=== PATIENT | male | born 1975 | race Two or more races ===

== ENCOUNTER 2021-08-07 13:45 | Inpatient (IN) | payer SELFPAY ==
[~2021-08-07] VITALS: Ht 162.6 cm; Wt 76.5 kg
[2021-08-07] MEDS ORDERED: levETIRAcetam 1,000 MG in IV DEXTROSE 5% 100ML 100 ML IV ONE (14:00)
--- NOTE | 2021-08-07 14:26 | RAD ---
Exam Date: 08/07/2021 2:[address] HEAD/BRAIN WO Indication: Reason: ams/post ictal / Spl. Instructions: / History: . TECHNIQUE: Head CT was performed without intravenous contrast. One or more of the following dose re duction techniques were utilized: *Automated exposure control (AEC) *Adjustment of mA and/or kV according to patient size *Use of iterative reconstruction technique *CT scan done according to ALARA, or ALARA/IMAGE GENTLY FINDINGS: Postoperative changes of right craniotomy are seen with encephalomalacia in the right temporoparietal lobe. The ventricles and sulci are normal for the patient's stated age. There is no evidence of acute int racranial hemorrhage, extra-axial collection, mass effect, midline shift, or acute territorial infarc t. The visualized paranasal sinuses, mastoid air cells and orbits are normal in appearance. IMPRESSION: No evidence for acute intracranial abnormality. Postoperative changes on the right with encephalomalacia noted. Electronically signed by: Sergey Kent MD (08/07/2021 2:24 PM) [id number]
[2021-08-07] MEDS ORDERED: IV NORMAL SALINE 1000ML BAG 1,000 ML IV ONE ×2 (14:45)
[2021-08-07 15:04] LABS: BASO % 1 % (0-3); EOS % 0 % (0-3); HEMOGLOBIN 13.8 g/dL (13.0-17.5); LYMPH # 0.6 x10^3/uL (1.0-4.8); LYMPH % 8 % (24-48); MEAN CORPUSCULAR HEMOGLOBIN 29 pg (25-35); MEAN CORPUSCULAR HGB CONC 33 g/dL (31-37); MEAN CORPUSCULAR VOLUME 87 fL (79-100); MONO # 0.4 x10^3/uL (0.0-1.1); MONO % 5 % (0-9); NEUT # 6.4 x10^3/uL (1.8-7.7); NEUT % 86 % (31-73); PLATELET COUNT 208 x10^3/uL (140-400); RED BLOOD COUNT 4.83 x10^6/uL (4.30-5.70); WHITE BLOOD COUNT 7.4 x10^3/uL (4.0-11.0)
[2021-08-07 15:07] LABS: CALCIUM 8.3 mg/dL (8.5-10.1); CREATININE 1.3 mg/dL (0.7-1.3); GFR 59.7; POTASSIUM 4.2 mmol/L (3.5-5.1)
[2021-08-07 15:13] LABS: ALBUMIN 3.4 g/dL (3.4-5.0); ALBUMIN/GLOBULIN RATIO 1.1 (1.0-1.7); TOTAL BILIRUBIN 0.3 mg/dL (0.2-1.0); TOTAL PROTEIN 6.5 g/dL (6.4-8.2)
[2021-08-07 17:14] LABS: AMPHETAMINE/METHAMPHETAMINE NEG (NEG); BARBITURATES NEG (NEG); BENZODIAZEPINES POS (NEG); CANNABINOIDS NEG (NEG); COCAINE NEG (NEG); METHADONE NEG (NEG); OPIATES NEG (NEG); PHENCYCLIDINE NEG (NEG)
--- NOTE | 2021-08-07 17:45 | PHYS DOC ---
Past Medical History Additional Past Medical Histor: unknown Past Surgical History: No Surgical History Additional Past Surgical Histo: unknown General Adult EDM: Chief Complaint: SEIZURE HPI: HPI: 45-year-old male presents the ED brought by EMS with concern for seizure-like activity per EMS. Patient was found seated in a car in a parking lot with seizure-like activity. Was given 2.5 mg Versed with no resolution of symptoms. Was given a repeat 2.5 mg of Versed, total 5 mg and patients' seizure liek activity resolved. Family was present on the scene and reported patient has a history of seizures. Patient is [place]z-speaking. History and and review of systems unable due to sedation. Review of Systems: Review of Systems: ROS unobtainable Heart Score: C/O Chest Pain: N/A Risk Factors: Risk Factors: DM, Current or recent (<one month) smoker, HTN, HLP, family history of CAD, obesity. Risk Scores: Score 0 - 3: 2.5% MACE over next 6 weeks - Discharge Home Score 4 - 6: 20.3% MACE over next 6 weeks - Admit for Clinical Observation Score 7 - 10: 72.7% MACE over next 6 weeks - Early Invasive Strategies Current Medications: Current Medications Medications (Trade) Dose Ordered Sig/Manjit Start Time Stop Time Status Last Admin Dose Admin Levetiracetam 1000 mg/Dextrose 110 ml @ 440 mls/hr 1X ONCE 08/07/21 14:00 08/07/21 14:14 DC 08/07/21 14:04 440 MLS/HR Sodium Chloride 1,000 ml @ 1,000 mls/hr 1X ONCE 08/07/21 14:45 08/07/21 15:44 DC Allergies: Allergies: Allergies Coded Allergies Type Severity Reaction Last Updated Verified No Known Drug Allergies 08/07/21 No Physical Exam: PE: Constitutional: Resting comfortably with no snoring respirations HENT: Normocephalic, atraumatic, no oral bleeding Eyes: PERRLA, EOMI, conjunctiva normal, no discharge. Neck: Normal range of motion, supple, no midline spinal step-offs Cardiovascular: S1/2 present, regular rhythm Lungs & Thorax: bilateral equal chest rise, no tachypnea or increased work of breathing Abdomen: soft, no tenderness, Skin: Warm, dry, no erythema, no rash. [] Extremities: No tenderness, no cyanosis, no lower extremity edema Neurologic: GCS9 ([id number]),, no focal deficits noted. [] Psychologic: Calm, no agitation Current Patient Data: Labs: Laboratory Tests Test 08/07/21 14:51 08/07/21 16:50 White Blood Count 7.4 x10^3/uL (4.0-11.0) Red Blood Count 4.83 x10^6/uL (4.30-5.70) Hemoglobin 13.8 g/dL (13.0-17.5) Hematocrit 42.0 % (39.0-53.0) Mean Corpuscular Volume 87 fL (79-100) Mean Corpuscular Hemoglobin 29 pg (25-35) Mean Corpuscular Hemoglobin Concent 33 g/dL (31-37) Red Cell Distribution Width 15.0 % (11.5-14.5) H Platelet Count 208 x10^3/uL (140-400) Neutrophils (%) (Auto) 86 % (31-73) H Lymphocytes (%) (Auto) 8 % (24-48) L Monocytes (%) (Auto) 5 % (0-9) Eosinophils (%) (Auto) 0 % (0-3) Basophils (%) (Auto) 1 % (0-3) Neutrophils # (Auto) 6.4 x10^3/uL (1.8-7.7) Lymphocytes # (Auto) 0.6 x10^3/uL (1.0-4.8) L Monocytes # (Auto) 0.4 x10^3/uL (0.0-1.1) Eosinophils # (Auto) 0.0 x10^3/uL (0.0-0.7) Basophils # (Auto) 0.0 x10^3/uL (0.0-0.2) Sodium Level 140 mmol/L (136-145) Potassium Level 4.2 mmol/L (3.5-5.1) Chloride Level 106 mmol/L (98-107) Carbon Dioxide Level 27 mmol/L (21-32) Anion Gap 7 (6-14) Blood Urea Nitrogen 20 mg/dL (8-26) Creatinine 1.3 mg/dL (0.7-1.3) Estimated GFR (Cockcroft-Gault) 59.7 BUN/Creatinine Ratio 15 (6-20) Glucose Level 130 mg/dL (70-99) H Calcium Level 8.3 mg/dL (8.5-10.1) L Total Bilirubin 0.3 mg/dL (0.2-1.0) Aspartate Amino Transferase (AST) 17 U/L (15-37) Alanine Aminotransferase (ALT) 26 U/L (16-63) Alkaline Phosphatase 64 U/L (46-116) Creatine Kinase 124 U/L (39-308) Total Protein 6.5 g/dL (6.4-8.2) Albumin 3.4 g/dL (3.4-5.0) Albumin/Globulin Ratio 1.1 (1.0-1.7) Ethyl Alcohol Level < 10 mg/dL (0-10) Urine Opiates Screen Neg (NEG) Urine Methadone Screen Neg (NEG) Urine Barbiturates Neg (NEG) Urine Phencyclidine Screen Neg (NEG) Urine Amphetamine/Methamphetamine Neg (NEG) Urine Benzodiazepines Screen Pos (NEG) Urine Cocaine Screen Neg (NEG) Urine Cannabinoids Screen Neg (NEG) Urine Ethyl Alcohol Neg (NEG) Laboratory Tests 08/07/21 14:51 Laboratory Tests 08/07/21 14:51 Vital Signs: Vital Signs Date Time Temp Pulse Resp B/P (MAP) Pulse Ox O2 Delivery O2 Flow Rate FiO2 08/07/21 17:01 66 12 117/72 (87) 98 Room Air 08/07/21 13:45 98.4 98.4 EKG: EKG: [] Radiology/Procedures: Radiology/Procedures: IMAGING REPORT Signed PATIENT: KETAN WHITMORE ACCOUNT: [id number] : 1975 LOCATION: ER AGE: 45 SEX: M EXAM STATUS: PRE ER ORD. PHYSICIAN: BELLE RILEY DO REASON: ams/post ictal PROCEDURE: CT HEAD WO CONTRAST Exam Date: 08/07/2021 2:[address] HEAD/BRAIN WO Indication: Reason: ams/post ictal / Spl. Instructions: / History: . TECHNIQUE: Head CT was performed without intravenous contrast. One or more of the following dose reduction techniques were utilized: *Automated exposure control (AEC) *Adjustment of mA and/or kV according to patient size *Use of iterative reconstruction technique *CT scan done according to ALARA, or ALARA/IMAGE GENTLY FINDINGS: Postoperative changes of right craniotomy are seen with encephalomalacia in the right temporoparietal lobe. The ventricles and sulci are normal for the patient's stated age. There is no evidence of acute intracranial hemorrhage, extra-axial collection, mass effect, midline shift, or acute territorial infarct. The visualized paranasal sinuses, mastoid air cells and orbits are normal in appearance. IMPRESSION: No evidence for acute intracranial abnormality. Postoperative changes on the right with encephalomalacia noted. Electronically signed by: Mattie Kent MD (08/07/2021 2:24 PM) [id number] DICTATED and SIGNED BY: MATTIE KENT MD DATE: 08/07/21 [id number] 0 Course & Med Decision Making: Course & Med Decision Making Pertinent Labs and Imaging studies reviewed. (See chart for details) Concern for seizure-like activity. On reevaluation using accident examiner in [place]z speaking staff, patient is not alert and oriented. Patient reports no history of epilepsy despite family history given to EMS. CT concerning for prior head trauma with craniectomy. No family to obtain collateral information. Will admit to medicine for further medical management. Dragon Disclaimer: Dragon Disclaimer: This electronic medical record was generated, in whole or in part, using a voice recognition dictation system. Departure Departure Impression: Primary Impression: Altered mental status Additional Impression: Seizure-like activity Disposition: ADMITTED INPATIENT Admitting Physician: SYDNIE (Dr. Sánchez) Condition: STABLE NELLAKEONAnh Mercer DO Aug 07, 2021 17:45
[2021-08-07 17:59] LABS: BILIRUBIN,URINE NEGATIVE (NEG); CLARITY,URINE CLEAR; COLOR,URINE YELLOW; NITRITE,URINE NEGATIVE (NEG); PROTEIN,URINE NEGATIVE (NEG-TRACE); UROBILINOGEN,URINE 0.2 mg/dL (0.2 mg/dL)
[2021-08-07 18:09] LABS: BACTERIA,URINE 0 /HPF (0-FEW); RBC,URINE RARE /HPF (0-2); WBC,URINE RARE /HPF (0-4)
--- NOTE | 2021-08-07 20:21 | RAD ---
Single view chest dated 08/07/2021 8:17 PM: COMPARISON: 04/11/2021 Clinical Indication: Altered mental status. Findings: Single upright portable exam of the chest was performed. Heart and mediastinal contours within normal limits. Minimal patchy perihilar opacity in the left is similar to prior study. No consolidation or pleural effusion. No pneumothorax. IMPRESSION: 1. No acute radiographic abnormality. Stable findings compared to 04/11/2021. Electronically signed by: Elia Hilliard MD (08/07/2021 8:19 PM) ANAHI
[2021-08-08] MEDS ORDERED: DEXTROSE 50% 25 GM / 50ML DISP.SYRIN. IV PRN (08:15)
[2021-08-08] MEDS ORDERED: DOCUSATE SODIUM 100 MG CAPSULE. PO PRN (08:15)
[2021-08-08] MEDS ORDERED: PROCHLORPERAZINE 10 MG/2 ML VIAL. IV PRN (08:15)
[2021-08-08] MEDS ORDERED: ACETAMINOPHEN 325 MG TABLET. PO PRN (08:15)
[2021-08-08] MEDS ORDERED: SENNOSIDES 8.6 MG TABLET PO PRN (08:15)
[2021-08-08] MEDS ORDERED: ONDANSETRON PF 4 MG/2 ML VIAL. IVP PRN (08:15)
[2021-08-08] MEDS ORDERED: ZOLPIDEM 5 MG TABLET. PO PRN (08:15)
[2021-08-08] MEDS ORDERED: LORazepam 0.5 MG TABLET PO PRN (08:15)
--- NOTE | 2021-08-08 08:18 | PDOC1 ---
History and Physical Date of Service: DOS: DATE: 08/08/21 TIME: 08:14 Chief Complaint: Chief Complain: Seizures History of Present Illness: HPI: History obtained from discussion with the ED physician and chart review: 45-year-old male presents the ED brought by EMS with concern for seizure-like activity per EMS. Patient was found seated in a car in a parking lot with seizure-like activity. Was given 2.5 mg Versed with no resolution of symptoms. Was given a repeat 2.5 mg of Versed, total 5 mg and patients' seizure activity resolved. Family was present on the scene and reported patient has a history of seizures. Patient is Maori-speaking. History and and review of systems unable due to sedation. Past Medical/Surgical History: PMH/PSH: Unknown Allergies: Allergies: Coded Allergies: No Known Drug Allergies (Unverified , 08/07/21) Family History: Family History: Reviewed with no relevant findings Social History: Social History: Unable to obtain due to sedation Current Medications: Current Medications Current Medications Levetiracetam 1000 mg/Dextrose 110 ml @ 440 mls/hr 1X ONCE IV Last administered on 08/07/21at 14:04; Start 08/07/21 at 14:00; Stop 08/07/21 at 14:14; Status DC Sodium Chloride 1,000 ml @ 1,000 mls/hr 1X ONCE IV Last administered on 08/07/21at 14:37; Start 08/07/21 at 14:45; Stop 08/07/21 at 15:44; Status DC Sodium Chloride 1,000 ml @ 1,000 mls/hr 1X ONCE IV Last administered on 08/07/21at 15:00; Start 08/07/21 at 14:45; Stop 08/07/21 at 15:44; Status DC ROS: Review of Systems Review of System REVIEW OF SYSTEMS: GENERAL: Denies weakness SKIN: No bruising, hair changes or rashes. EYES: No blurred, double or loss of vision. NOSE AND THROAT: No history of nosebleeds, hoarseness or sore throat. HEART: No history of palpitations, chest pain or shortness of breath on exertion. LUNGS: Denies cough, hemoptysis, wheezing or shortness of breath. GASTROINTESTINAL: Denies changes in appetite, nausea, vomiting, diarrhea or constipation. GENITOURINARY: No history of frequency, urgency, hesitancy or nocturia. NEUROLOGIC: Denies history of numbness, tingling, or tremor. PSYCHIATRIC: No history of panic, anxiety or depression. ENDOCRINE: No history of heat or cold intolerance, polyuria or polydipsia. EXTREMITIES: Denies joint pain, pain on walking or stiffness. Physical Exam: Vital Signs: Vital Signs Date Time Temp Pulse Resp B/P (MAP) Pulse Ox O2 Delivery O2 Flow Rate FiO2 08/08/21 04:30 98.4 74 16 97/54 (68) 99 Room Air 98.4 Physcial Exam: GEN: No apparent distress. Alert and oriented HEENT: Normal cephalic, atraumatic, external auditory canals are patent EYES: Extraocular muscles are intact, pupil are equally round and reactive to light and accommodation MUSCULOSKELETAL: Well developed , well nourished, good range of motion ENDOCRINE: No thyromegaly was palpated LYMPHATICS: No cervical chain or axillary nodes were noted HEMATOPOIETIC: No bruising NECK: Supple, no JVD, no thyromegaly was noted LUNGS: Clear to auscultation in all lung castañeda without rhonchi or wheezing HEART: RRR, S!, S2 present. Peripheral pulses intact, no obvious murmurs noted ABDOMEN: Soft, nontender. Positive bowel sounds, no organomegaly, normal bowel sounds EXTREMITIES: Without clubbing, cyanosis, or edema. Pedal pulses intact. Negative Homans sign NEUROLOGIC: Normal speech and tone. A&O x 3, moves all extremities, no obvious focal deficits PSYCHIATRIC: Normal affect, normal mood. Stable SKIN: No ulcerations or rashes, good skin turgor, no jaundice VASCULAR: Good capillary refill, neurovascular bundle appears to be intact Labs: Labs: Laboratory Tests Test 08/07/21 14:51 08/07/21 16:50 White Blood Count 7.4 x10^3/uL (4.0-11.0) Red Blood Count 4.83 x10^6/uL (4.30-5.70) Hemoglobin 13.8 g/dL (13.0-17.5) Hematocrit 42.0 % (39.0-53.0) Mean Corpuscular Volume 87 fL (79-100) Mean Corpuscular Hemoglobin 29 pg (25-35) Mean Corpuscular Hemoglobin Concent 33 g/dL (31-37) Red Cell Distribution Width 15.0 % (11.5-14.5) Platelet Count 208 x10^3/uL (140-400) Neutrophils (%) (Auto) 86 % (31-73) Lymphocytes (%) (Auto) 8 % (24-48) Monocytes (%) (Auto) 5 % (0-9) Eosinophils (%) (Auto) 0 % (0-3) Basophils (%) (Auto) 1 % (0-3) Neutrophils # (Auto) 6.4 x10^3/uL (1.8-7.7) Lymphocytes # (Auto) 0.6 x10^3/uL (1.0-4.8) Monocytes # (Auto) 0.4 x10^3/uL (0.0-1.1) Eosinophils # (Auto) 0.0 x10^3/uL (0.0-0.7) Basophils # (Auto) 0.0 x10^3/uL (0.0-0.2) Sodium Level 140 mmol/L (136-145) Potassium Level 4.2 mmol/L (3.5-5.1) Chloride Level 106 mmol/L (98-107) Carbon Dioxide Level 27 mmol/L (21-32) Anion Gap 7 (6-14) Blood Urea Nitrogen 20 mg/dL (8-26) Creatinine 1.3 mg/dL (0.7-1.3) Estimated GFR (Cockcroft-Gault) 59.7 BUN/Creatinine Ratio 15 (6-20) Glucose Level 130 mg/dL (70-99) Calcium Level 8.3 mg/dL (8.5-10.1) Total Bilirubin 0.3 mg/dL (0.2-1.0) Aspartate Amino Transf (AST/SGOT) 17 U/L (15-37) Alanine Aminotransferase (ALT/SGPT) 26 U/L (16-63) Alkaline Phosphatase 64 U/L (46-116) Creatine Kinase 124 U/L (39-308) Total Protein 6.5 g/dL (6.4-8.2) Albumin 3.4 g/dL (3.4-5.0) Albumin/Globulin Ratio 1.1 (1.0-1.7) Ethyl Alcohol Level < 10 mg/dL (0-10) Urine Collection Type Unknown Urine Color Yellow Urine Clarity Clear Urine pH 6.0 (<5.0-8.0) Urine Specific [place] 1.010 (1.000-1.030) Urine Protein Negative mg/dL (NEG-TRACE) Urine Glucose (UA) Negative mg/dL (NEG) Urine Ketones (Stick) Negative mg/dL (NEG) Urine Blood Negative (NEG) Urine Nitrite Negative (NEG) Urine Bilirubin Negative (NEG) Urine Urobilinogen Dipstick 0.2 mg/dL (0.2 mg/dL) Urine Leukocyte Esterase Negative (NEG) Urine RBC Rare /HPF (0-2) Urine WBC Rare /HPF (0-4) Urine Squamous Epithelial Cells Occ /LPF Urine Bacteria 0 /HPF (0-FEW) Urine Mucus Slight /LPF Urine Opiates Screen Neg (NEG) Urine Methadone Screen Neg (NEG) Urine Barbiturates Neg (NEG) Urine Phencyclidine Screen Neg (NEG) Urine Amphetamine/Methamphetamine Neg (NEG) Urine Benzodiazepines Screen Pos (NEG) Urine Cocaine Screen Neg (NEG) Urine Cannabinoids Screen Neg (NEG) Urine Ethyl Alcohol Neg (NEG) Laboratory Tests Test 08/07/21 14:51 08/07/21 16:50 White Blood Count 7.4 x10^3/uL (4.0-11.0) Red Blood Count 4.83 x10^6/uL (4.30-5.70) Hemoglobin 13.8 g/dL (13.0-17.5) Hematocrit 42.0 % (39.0-53.0) Mean Corpuscular Volume 87 fL (79-100) Mean Corpuscular Hemoglobin 29 pg (25-35) Mean Corpuscular Hemoglobin Concent 33 g/dL (31-37) Red Cell Distribution Width 15.0 % (11.5-14.5) Platelet Count 208 x10^3/uL (140-400) Neutrophils (%) (Auto) 86 % (31-73) Lymphocytes (%) (Auto) 8 % (24-48) Monocytes (%) (Auto) 5 % (0-9) Eosinophils (%) (Auto) 0 % (0-3) Basophils (%) (Auto) 1 % (0-3) Neutrophils # (Auto) 6.4 x10^3/uL (1.8-7.7) Lymphocytes # (Auto) 0.6 x10^3/uL (1.0-4.8) Monocytes # (Auto) 0.4 x10^3/uL (0.0-1.1) Eosinophils # (Auto) 0.0 x10^3/uL (0.0-0.7) Basophils # (Auto) 0.0 x10^3/uL (0.0-0.2) Sodium Level 140 mmol/L (136-145) Potassium Level 4.2 mmol/L (3.5-5.1) Chloride Level 106 mmol/L (98-107) Carbon Dioxide Level 27 mmol/L (21-32) Anion Gap 7 (6-14) Blood Urea Nitrogen 20 mg/dL (8-26) Creatinine 1.3 mg/dL (0.7-1.3) Estimated GFR (Cockcroft-Gault) 59.7 BUN/Creatinine Ratio 15 (6-20) Glucose Level 130 mg/dL (70-99) Calcium Level 8.3 mg/dL (8.5-10.1) Total Bilirubin 0.3 mg/dL (0.2-1.0) Aspartate Amino Transf (AST/SGOT) 17 U/L (15-37) Alanine Aminotransferase (ALT/SGPT) 26 U/L (16-63) Alkaline Phosphatase 64 U/L (46-116) Creatine Kinase 124 U/L (39-308) Total Protein 6.5 g/dL (6.4-8.2) Albumin 3.4 g/dL (3.4-5.0) Albumin/Globulin Ratio 1.1 (1.0-1.7) Ethyl Alcohol Level < 10 mg/dL (0-10) Urine Collection Type Unknown Urine Color Yellow Urine Clarity Clear Urine pH 6.0 (<5.0-8.0) Urine Specific [place] 1.010 (1.000-1.030) Urine Protein Negative mg/dL (NEG-TRACE) Urine Glucose (UA) Negative mg/dL (NEG) Urine Ketones (Stick) Negative mg/dL (NEG) Urine Blood Negative (NEG) Urine Nitrite Negative (NEG) Urine Bilirubin Negative (NEG) Urine Urobilinogen Dipstick 0.2 mg/dL (0.2 mg/dL) Urine Leukocyte Esterase Negative (NEG) Urine RBC Rare /HPF (0-2) Urine WBC Rare /HPF (0-4) Urine Squamous Epithelial Cells Occ /LPF Urine Bacteria 0 /HPF (0-FEW) Urine Mucus Slight /LPF Urine Opiates Screen Neg (NEG) Urine Methadone Screen Neg (NEG) Urine Barbiturates Neg (NEG) Urine Phencyclidine Screen Neg (NEG) Urine Amphetamine/Methamphetamine Neg (NEG) Urine Benzodiazepines Screen Pos (NEG) Urine Cocaine Screen Neg (NEG) Urine Cannabinoids Screen Neg (NEG) Urine Ethyl Alcohol Neg (NEG) Images: Images PROCEDURE: CHEST AP ONLY Single view chest dated 08/07/2021 8:17 PM: COMPARISON: 04/11/2021 Clinical Indication: Altered mental status. Findings: Single upright portable exam of the chest was performed. Heart and mediastinal contours within normal limits. Minimal patchy perihilar opacity in the left is similar to prior study. No consolidation or pleural effusion. No pneumothorax. IMPRESSION: 1. No acute radiographic abnormality. Stable findings compared to 04/11/2021. PROCEDURE: CT HEAD WO CONTRAST Exam Date: 08/07/2021 2:[address] HEAD/BRAIN WO Indication: Reason: ams/post ictal / Spl. Instructions: / History: . TECHNIQUE: Head CT was performed without intravenous contrast. One or more of the following dose reduction techniques were utilized: *Automated exposure control (AEC) *Adjustment of mA and/or kV according to patient size *Use of iterative reconstruction technique *CT scan done according to ALARA, or ALARA/IMAGE GENTLY FINDINGS: Postoperative changes of right craniotomy are seen with encephalomalacia in the right temporoparietal lobe. The ventricles and sulci are normal for the patient's stated age. There is no evidence of acute intracranial hemorrhage, extra-axial collection, mass effect, midline shift, or acute territorial infarct. The visualized paranasal sinuses, mastoid air cells and orbits are normal in appearance. IMPRESSION: No evidence for acute intracranial abnormality. Postoperative changes on the right with encephalomalacia noted. Assessment/Plan Assessment/Plan Acute metabolic encephalopathy due to seizure activity History of seizure disorder History of right craniotomy Justifications for Admission Other Justification LUIS GONZALEZ MD Aug 08, 2021 08:18
[2021-08-08] MEDS ORDERED: MIDAZOLAM HCL/PF 2 MG/2 ML VIAL. IV PRN (08:30)
[2021-08-08] MEDS ORDERED: levETIRAcetam 500 MG TABLET PO SCH (09:15)
--- NOTE | 2021-08-08 09:27 | PDOC2 ---
NEUROLOGY CONSULT Date of Service DOS: DATE: 08/08/21 TIME: 09:23 Reason for Consult Reason for Consult: Seizure Referring Physician Referring Physician: Dr. Terrell Source Source: Chart review, Patient History of Present Illness History of Present Illness The patient is a 45-year-old right-handed male who had a witnessed seizure yesterday. He had a prolonged postictal state in the emergency department. There is some confusion as to whether he has a previous history of seizure. I conversed with him in Slovenian and also looked at the notes from Dr. Tejeda, who writes that the family told her that he has a previous history of head injury and seizures. Indeed, that is what the patient tells me. He does not remember his last seizure. He does not know if he takes a medication for seizures. He is feeling back to himself right now and wants to go home. Past Medical History CENTRAL NERVOUS SYSTEM: Seizure, Other (Head injury) Past Surgical History Past Surgical History: Other (Right craniotomy), No pertinent history Family History Family History: No pertinent hx (He denies family history of seizures) Social History Social History , works in a store, no alcohol or tobacco Current Medications Current Medications Current Medications Levetiracetam 1000 mg/Dextrose 110 ml @ 440 mls/hr 1X ONCE IV Last administered on 08/07/21at 14:04; Start 08/07/21 at 14:00; Stop 08/07/21 at 14:14; Status DC Sodium Chloride 1,000 ml @ 1,000 mls/hr 1X ONCE IV Last administered on 08/07/21at 14:37; Start 08/07/21 at 14:45; Stop 08/07/21 at 15:44; Status DC Sodium Chloride 1,000 ml @ 1,000 mls/hr 1X ONCE IV Last administered on 08/07/21at 15:00; Start 08/07/21 at 14:45; Stop 08/07/21 at 15:44; Status DC Sennosides (Senna) 17.2 mg PRN BID PRN PO CONSTIPATION; Start 08/08/21 at 08:15 Docusate Sodium (Colace) 100 mg PRN DAILY PRN PO HARD STOOLS; Start 08/08/21 at 08:15 Ondansetron HCl (Zofran) 4 mg PRN Q6HRS PRN IVP NAUSEA/VOMITING; Start 08/08/21 at 08:15 Dextrose (Dextrose 50%-Water Syringe) 12.5 gm PRN Q15MIN PRN IV SEE COMMENTS; Start 08/08/21 at 08:15 Acetaminophen (Tylenol) 650 mg PRN Q4HRS PRN PO TEMP OVER 100.4F OR MILD PAIN; Start 08/08/21 at 08:15 Lorazepam (Ativan) 0.5 mg PRN Q6HRS PRN PO ANXIETY / AGITATION; Start 08/08/21 at 08:15 Lorazepam (Ativan Inj) 0.25 mg PRN Q4HRS PRN IV ANXIETY / AGITATION; Start 08/08/21 at 08:15 Prochlorperazine Edisylate (Compazine) 10 mg PRN Q6HRS PRN IV NAUSEA/VOMITING; Start 08/08/21 at 08:15 Zolpidem Tartrate (Ambien) 2.5 mg PRN QHS PRN PO INSOMNIA; Start 08/08/21 at 08:15 Midazolam HCl (Versed) 2 mg Q6H PRN IV SEIZURES; Start 08/08/21 at 08:30 Levetiracetam (Keppra) 500 mg BID PO ; Start 08/08/21 at 09:15 Allergies Allergies: Coded Allergies: No Known Drug Allergies (Unverified , 08/07/21) ROS Review of System Negative for fever, chills, weight loss, shortness of breath, chest pain, ralph gestion, hematochezia, melena, and dysuria. Full 14-point review of systems is negative. Physical Exam Physical Examination General: Well-developed, well-nourished, male, in no acute distress HEENT: Normocephalic andatraumatic. Tympanic membranes clear.Temporal arteriespulsatile and nontender.Fundoscopic exam unremarkable Neck: Supple without bruit, no meningismus Musculoskeletal: Stability:see neurologic. Gait exam:see neurologic. Tone:see neurologic.Stre ngth:see neurologic. Neurological: Mental Status:intact, orientation, memory, attention span/concentration, language, fund of knowledge normal, except he does not know the name of the hospital. Cranial Nerves:Pupils equal and reactive to light, extraocular movements areintact, visual castañeda are full to confrontation. Facial sensation is normal. There is no facial asymmetry. Vestibulo-ocular reflex is intact. Palate elevates and tongue protrudes in midline. All other cranial related problems are negative except as mentioned before.Reflexes:2+ and symmetric with flexor plantar responses. Motor:5/5 strength with normal tone and bulk. Coordination:Finger-nose finger and gaqu-nj-glka testing are normal. Rapid alternating movements and fine finger movements are intact. Gait:Not tested. Sensory:Normal pinprick, vibration, light touch, proprioception. Vitals VITALS Vital Signs Date Time Temp Pulse Resp B/P (MAP) Pulse Ox O2 Delivery O2 Flow Rate FiO2 08/08/21 04:30 98.4 74 16 97/54 (68) 99 Room Air 98.4 Labs Labs Laboratory Tests Test 08/07/21 14:51 08/07/21 16:50 White Blood Count 7.4 x10^3/uL (4.0-11.0) Red Blood Count 4.83 x10^6/uL (4.30-5.70) Hemoglobin 13.8 g/dL (13.0-17.5) Hematocrit 42.0 % (39.0-53.0) Mean Corpuscular Volume 87 fL (79-100) Mean Corpuscular Hemoglobin 29 pg (25-35) Mean Corpuscular Hemoglobin Concent 33 g/dL (31-37) Red Cell Distribution Width 15.0 % (11.5-14.5) Platelet Count 208 x10^3/uL (140-400) Neutrophils (%) (Auto) 86 % (31-73) Lymphocytes (%) (Auto) 8 % (24-48) Monocytes (%) (Auto) 5 % (0-9) Eosinophils (%) (Auto) 0 % (0-3) Basophils (%) (Auto) 1 % (0-3) Neutrophils # (Auto) 6.4 x10^3/uL (1.8-7.7) Lymphocytes # (Auto) 0.6 x10^3/uL (1.0-4.8) Monocytes # (Auto) 0.4 x10^3/uL (0.0-1.1) Eosinophils # (Auto) 0.0 x10^3/uL (0.0-0.7) Basophils # (Auto) 0.0 x10^3/uL (0.0-0.2) Sodium Level 140 mmol/L (136-145) Potassium Level 4.2 mmol/L (3.5-5.1) Chloride Level 106 mmol/L (98-107) Carbon Dioxide Level 27 mmol/L (21-32) Anion Gap 7 (6-14) Blood Urea Nitrogen 20 mg/dL (8-26) Creatinine 1.3 mg/dL (0.7-1.3) Estimated GFR (Cockcroft-Gault) 59.7 BUN/Creatinine Ratio 15 (6-20) Glucose Level 130 mg/dL (70-99) Calcium Level 8.3 mg/dL (8.5-10.1) Total Bilirubin 0.3 mg/dL (0.2-1.0) Aspartate Amino Transf (AST/SGOT) 17 U/L (15-37) Alanine Aminotransferase (ALT/SGPT) 26 U/L (16-63) Alkaline Phosphatase 64 U/L (46-116) Creatine Kinase 124 U/L (39-308) Total Protein 6.5 g/dL (6.4-8.2) Albumin 3.4 g/dL (3.4-5.0) Albumin/Globulin Ratio 1.1 (1.0-1.7) Ethyl Alcohol Level < 10 mg/dL (0-10) Urine Collection Type Unknown Urine Color Yellow Urine Clarity Clear Urine pH 6.0 (<5.0-8.0) Urine Specific [place] 1.010 (1.000-1.030) Urine Protein Negative mg/dL (NEG-TRACE) Urine Glucose (UA) Negative mg/dL (NEG) Urine Ketones (Stick) Negative mg/dL (NEG) Urine Blood Negative (NEG) Urine Nitrite Negative (NEG) Urine Bilirubin Negative (NEG) Urine Urobilinogen Dipstick 0.2 mg/dL (0.2 mg/dL) Urine Leukocyte Esterase Negative (NEG) Urine RBC Rare /HPF (0-2) Urine WBC Rare /HPF (0-4) Urine Squamous Epithelial Cells Occ /LPF Urine Bacteria 0 /HPF (0-FEW) Urine Mucus Slight /LPF Urine Opiates Screen Neg (NEG) Urine Methadone Screen Neg (NEG) Urine Barbiturates Neg (NEG) Urine Phencyclidine Screen Neg (NEG) Urine Amphetamine/Methamphetamine Neg (NEG) Urine Benzodiazepines Screen Pos (NEG) Urine Cocaine Screen Neg (NEG) Urine Cannabinoids Screen Neg (NEG) Urine Ethyl Alcohol Neg (NEG) Laboratory Tests Test 08/07/21 14:51 08/07/21 16:50 White Blood Count 7.4 x10^3/uL (4.0-11.0) Red Blood Count 4.83 x10^6/uL (4.30-5.70) Hemoglobin 13.8 g/dL (13.0-17.5) Hematocrit 42.0 % (39.0-53.0) Mean Corpuscular Volume 87 fL (79-100) Mean Corpuscular Hemoglobin 29 pg (25-35) Mean Corpuscular Hemoglobin Concent 33 g/dL (31-37) Red Cell Distribution Width 15.0 % (11.5-14.5) Platelet Count 208 x10^3/uL (140-400) Neutrophils (%) (Auto) 86 % (31-73) Lymphocytes (%) (Auto) 8 % (24-48) Monocytes (%) (Auto) 5 % (0-9) Eosinophils (%) (Auto) 0 % (0-3) Basophils (%) (Auto) 1 % (0-3) Neutrophils # (Auto) 6.4 x10^3/uL (1.8-7.7) Lymphocytes # (Auto) 0.6 x10^3/uL (1.0-4.8) Monocytes # (Auto) 0.4 x10^3/uL (0.0-1.1) Eosinophils # (Auto) 0.0 x10^3/uL (0.0-0.7) Basophils # (Auto) 0.0 x10^3/uL (0.0-0.2) Sodium Level 140 mmol/L (136-145) Potassium Level 4.2 mmol/L (3.5-5.1) Chloride Level 106 mmol/L (98-107) Carbon Dioxide Level 27 mmol/L (21-32) Anion Gap 7 (6-14) Blood Urea Nitrogen 20 mg/dL (8-26) Creatinine 1.3 mg/dL (0.7-1.3) Estimated GFR (Cockcroft-Gault) 59.7 BUN/Creatinine Ratio 15 (6-20) Glucose Level 130 mg/dL (70-99) Calcium Level 8.3 mg/dL (8.5-10.1) Total Bilirubin 0.3 mg/dL (0.2-1.0) Aspartate Amino Transf (AST/SGOT) 17 U/L (15-37) Alanine Aminotransferase (ALT/SGPT) 26 U/L (16-63) Alkaline Phosphatase 64 U/L (46-116) Creatine Kinase 124 U/L (39-308) Total Protein 6.5 g/dL (6.4-8.2) Albumin 3.4 g/dL (3.4-5.0) Albumin/Globulin Ratio 1.1 (1.0-1.7) Ethyl Alcohol Level < 10 mg/dL (0-10) Urine Collection Type Unknown Urine Color Yellow Urine Clarity Clear Urine pH 6.0 (<5.0-8.0) Urine Specific [place] 1.010 (1.000-1.030) Urine Protein Negative mg/dL (NEG-TRACE) Urine Glucose (UA) Negative mg/dL (NEG) Urine Ketones (Stick) Negative mg/dL (NEG) Urine Blood Negative (NEG) Urine Nitrite Negative (NEG) Urine Bilirubin Negative (NEG) Urine Urobilinogen Dipstick 0.2 mg/dL (0.2 mg/dL) Urine Leukocyte Esterase Negative (NEG) Urine RBC Rare /HPF (0-2) Urine WBC Rare /HPF (0-4) Urine Squamous Epithelial Cells Occ /LPF Urine Bacteria 0 /HPF (0-FEW) Urine Mucus Slight /LPF Urine Opiates Screen Neg (NEG) Urine Methadone Screen Neg (NEG) Urine Barbiturates Neg (NEG) Urine Phencyclidine Screen Neg (NEG) Urine Amphetamine/Methamphetamine Neg (NEG) Urine Benzodiazepines Screen Pos (NEG) Urine Cocaine Screen Neg (NEG) Urine Cannabinoids Screen Neg (NEG) Urine Ethyl Alcohol Neg (NEG) Images Images CT HEAD/BRAIN WO Indication: Reason: ams/post ictal / Spl. Instructions: / History: . TECHNIQUE: Head CT was performed without intravenous contrast. One or more of the following dose reduction techniques were utilized: *Automated exposure control (AEC) *Adjustment of mA and/or kV according to patient size *Use of iterative reconstruction technique *CT scan done according to ALARA, or ALARA/IMAGE GENTLY FINDINGS: Postoperative changes of right craniotomy are seen with encephalomalacia in the right temporoparietal lobe. The ventricles and sulci are normal for the patient's stated age. There is no evidence of acute intracranial hemorrhage, extra-axial collection, mass effect, midline shift, or acute territorial infarct. The visualized paranasal sinuses, mastoid air cells and orbits are normal in appearance. IMPRESSION: No evidence for acute intracranial abnormality. Postoperative changes on the right with encephalomalacia noted. Assessment/Plan Assessment/Plan Impression: History of prior seizures and head injury with a right craniotomy, breakthrough seizure yesterday. Recommendations: Continue levetiracetam as an outpatient No need for additional neurological work-up Okay for discharge Follow-up with neurology as needed I attempted to reach the patient's , the phone number given in the chart is a bad number. Thank you for letting me help with the patient's care. BERNDA FLETCHER MD Aug 08, 2021 09:27
[2021-08-08 10:49] VITALS: BP 135/70
[2021-08-08] MEDS ORDERED: LEVE500T6 PO (12:53)
--- NOTE | 2021-08-08 12:54 | DISCH ---
DISCHARGE INSTRUCTIONS Condition on Discharge Condition on Discharge: Stable Activity After Discharge Activity Instructions for Disc: Activity as tolerated Lifting Instructions after Dis: Do not lift >10 pounds Exercise Instruction after Dis: Walk 15 min, 3 x per day Driving Instructions after Dis: No driving for 6 months (Please see your neurologist before driving) Diet after Discharge Diet after Discharge: Cardiac Follow-Up Follow up with: PCP within 2 weeks of discharge Follow Up With: Neurology as needed or as scheduled LUIS GONZALEZ MD Aug 08, 2021 12:54
--- NOTE | 2021-08-18 10:50 | PDOC3 ---
[facility]-Discharge Summary Date of Admission: Date of Admission: Aug 08, 2021 Date of Discharge: Date of Discharge: Aug 08, 2021 Discharge Diagnosis: Discharge Diagnosis: Acute metabolic encephalopathy due to seizure activity History of seizure disorder History of right craniotomy Consults: Consults: neurology Recommendations: Continue levetiracetam as an outpatient No need for additional neurological work-up Okay for discharge Follow-up with neurology as needed I attempted to reach the patient's , the phone number given in the chart is a bad number. Hospital Course: Hospital Course: 45-year-old male presents the ED brought by EMS with concern for seizure-like activity per EMS. Patient was found seated in a car in a parking lot with seizure-like activity. Was given 2.5 mg Versed with no resolution of symptoms. Was given a repeat 2.5 mg of Versed, total 5 mg and patients' seizure activity resolved. Family was present on the scene and reported patient has a history of seizures. Patient is Polish-speaking. History and and review of systems unable due to sedation. By day of discharge, pt was clinically stable, chest pain free and ready for discharge. Rest of hospital course was uneventful Disposition: Disposition/Orders: D/C to Home Activity: Activity: Resume previous activity Diet: Diet: Cardiac Medications: Home Meds Active Scripts Levetiracetam (LEVETIRACETAM) 500 Mg Tablet, 500 MG PO BID for seizures for 30 Days, #60 TAB 2 Refills Prov:LUIS GONZALEZ MD 08/08/21 Scheduled Levetiracetam (Levetiracetam), 500 MG PO BID Total Time: Total Time: Total time spent was 33 minutes in preparing scripts, discharge planning with SW and RN, and preparing this discharge summary. Justicifation of Admission Dx: Justifications for Admission: Justification of Admission Dx: Yes Altered Mental Status: Altered Mental Status LUIS GONZALEZ MD Aug 18, 2021 10:50
== END 2021-08-08 19:00 | disposition home or self-care (01) | DRG 101 ==
LOC: ER 13:45 → ED HOLD 21:02
PROVIDERS: ADMIT Internal Medicine; ATTEND Internal Medicine
DX: G40.909 Epilepsy, unspecified, not intractable, without status epilepticus (principal); Z87.828 Personal history of other (healed) physical injury and trauma
CPT/HCPCS: 36415; 70450; 71045; 80053; 80307; 81001; 82550; 85025; 96361; 96365; G0480; J1953; J7030; J7060; 99285-25